=== PATIENT | female | born 1985 | race American Indian/Alaskan Native ===

== ENCOUNTER 2021-05-29 21:00 | Emergency (ER) | payer MEDICARE ==
[2021-05-29 23:47] LABS: Bacteria,Urine 1+ /HPF (Negative); Bilirubin,Urine NEG (Negative); Blood,Urine NEG (Negative); Color,Urine Yellow (Yellow); Mucus,Urine FEW /HPF
[2021-05-30 00:30] LABS: Basophils % (Auto) 0.3 % (0.0-1.8); Hematocrit 39.7 % (30.3-42.9); Hemoglobin 13.1 gm/dl (10.1-14.3); Lymphocytes # (Auto) 1.9 K/mm3 (1.2-5.4); Lymphocytes % (Auto) 11.1 % (13.4-35.0); Mean Corpuscular HGB Conc 33 % (30-34); Mean Corpuscular Volume 77 fl (79-97); Monocytes # (Auto) 0.8 K/mm3 (0.0-0.8); Monocytes % (Auto) 4.4 % (0.0-7.3); Platelet Count 432 K/mm3 (140-440); Red Blood Count 5.16 M/mm3 (3.65-5.03); Red Cell Distribution Width 16.3 % (13.2-15.2)
--- NOTE | 2021-05-30 00:39 | Emergency Department Report ---
ED General Adult HPI - General Chief complaint: Abdominal Pain Stated complaint: CHEST PAIN/CANALES Time Seen by Provider: 05/29/21 23:49 Source: patient Mode of arrival: Ambulatory Limitations: No Limitations - History of Present Illness Initial comments: Patient a 35-year-old obese female who presents for generalized abdominal pain with cough body aches x3 days. Patient is not Covid vaccinated. Patient denies suspicious contacts or travel. Symptoms are exacerbated by movement and p.o. intake. With nausea vomiting started 2 days ago. Symptoms are rated at 4/10 at this time. Patient denies renal stones or history of gallstones. Patient is status post tubal ligation. Other history is hypertension, - Related Data Previous Rx's Medication Instructions Recorded Last Taken Type Ciprofloxacin HCl 500 mg PO BID 7 Days #14 tablet 05/30/21 Unknown Rx Omeprazole 20 mg PO BID #30 tablet. 05/30/21 Unknown Rx metroNIDAZOLE [Flagyl] 500 mg PO Q8HR 7 Days #21 tablet 05/30/21 Unknown Rx traMADoL [Ultram] 50 mg PO Q6HR PRN #12 tablet 05/30/21 Unknown Rx Allergies Allergy/AdvReac Type Severity Reaction Status Date / Time naproxen Allergy Headache Verified 05/29/21 21:38 ED Review of Systems ROS: Stated complaint: CHEST PAIN/CANALES Other details as noted in HPI Constitutional: malaise Eyes: denies: eye pain, eye discharge, vision change ENT: denies: ear pain, throat pain Respiratory: cough. denies: shortness of breath, wheezing Cardiovascular: denies: chest pain, palpitations Endocrine: no symptoms reported Gastrointestinal: abdominal pain, nausea, vomiting. denies: diarrhea, constipation Genitourinary: denies: urgency, dysuria, frequency, discharge Musculoskeletal: back pain Skin: denies: rash, lesions Neurological: headache. denies: weakness, numbness, paresthesias, confusion, vertigo Psychiatric: denies: anxiety, depression Hematological/Lymphatic: denies: easy bleeding, easy bruising ED Past Medical Hx - Past Medical History Hx Hypertension: Yes Hx Psychiatric Treatment: Yes Hx Asthma: Yes - Surgical History Hx Cholecystectomy: Yes Additional Surgical History: c section x2 - Medications Home Medications: Home Medications Medication Instructions Recorded Confirmed Last Taken Type Ciprofloxacin HCl 500 mg PO BID 7 Days #14 tablet 05/30/21 Unknown Rx Omeprazole 20 mg PO BID #30 tablet. 05/30/21 Unknown Rx metroNIDAZOLE [Flagyl] 500 mg PO Q8HR 7 Days #21 tablet 05/30/21 Unknown Rx traMADoL [Ultram] 50 mg PO Q6HR PRN #12 tablet 05/30/21 Unknown Rx ED Physical Exam - General Limitations: No Limitations General appearance: alert, in no apparent distress - Head Head exam: Present: atraumatic, normocephalic - Eye Eye exam: Present: normal appearance, EOMI Pupils: Present: normal accommodation - ENT ENT exam: Present: mucous membranes moist - Neck Neck exam: Present: normal inspection, full ROM. Absent: tenderness - Respiratory Respiratory exam: Present: normal lung sounds bilaterally. Absent: respiratory distress, wheezes, stridor, chest wall tenderness - Cardiovascular Cardiovascular Exam: Present: regular rate, normal rhythm, normal heart sounds. Absent: systolic murmur, diastolic murmur, rubs, gallop - GI/Abdominal GI/Abdominal exam: Present: soft, tenderness (mild tenderness bilat Lower abd ), normal bowel sounds. Absent: distended, guarding, rebound, rigid, bruit, hernia - Rectal Rectal exam: Present: deferred - Extremities Exam Extremities exam: Present: normal inspection, full ROM, normal capillary refill - Back Exam Back exam: Present: full ROM. Absent: tenderness, CVA tenderness (R), CVA tenderness (L) - Neurological Exam Neurological exam: Present: alert, oriented X3, CN II-XII intact, normal gait, motor sensory deficit - Expanded Neurological Exam Expanded Patient oriented to: Present: person, place, time Speech: Present: fluid speech Motor strength exam: RUE: 5, LUE: 5, RLE: 5, LLE: 5 Best Eye Response ([place]): (4) open spontaneously Best Motor Response ([place]): (6) obeys commands Best Verbal Response ([place]): (5) oriented Cathleen Total: 15 - Psychiatric Psychiatric exam: Present: normal affect, normal mood - Skin Skin exam: Present: warm, dry, intact, normal color. Absent: rash ED Medical Decision Making - Lab Data Result diagrams: 05/29/21 23:57 05/29/21 23:57 Labs 05/29/21 05/29/21 05/29/21 23:20 23:57 23:57 WBC 17.4 H RBC 5.16 H Hgb 13.1 Hct 39.7 MCV 77 L MCH 25 L MCHC 33 RDW 16.3 H Plt Count 432 Lymph % (Auto) 11.1 L [place] % (Auto) 4.4 Eos % (Auto) 0.0 Baso % (Auto) 0.3 Lymph # (Auto) 1.9 [place] # (Auto) 0.8 Eos # (Auto) 0.0 Baso # (Auto) 0.0 Seg Neutrophils % 84.2 H Seg Neutrophils # 14.6 H Sodium 131 L Potassium 3.9 Chloride 97.4 L Carbon Dioxide 20 L Anion Gap 18 BUN 10 Creatinine 0.8 Estimated GFR > 60 BUN/Creatinine Ratio 13 Glucose 122 H Calcium 9.7 Total Bilirubin 1.40 H AST 14 ALT 15 Alkaline Phosphatase 93 Total Protein 8.2 Albumin 4.0 Albumin/Globulin Ratio 1.0 Urine Color Yellow Urine Turbidity Slightly-cloudy Urine pH 5.0 Ur Specific [place] 1.023 Urine Protein 30 mg/dl Urine Glucose (UA) Neg Urine Ketones Neg Urine Blood Neg Urine Nitrite Neg Urine Bilirubin Neg Urine Urobilinogen 4.0 Ur Leukocyte Esterase Neg Urine WBC (Auto) 6.0 Urine RBC (Auto) 2.0 U Epithel Cells (Auto) 11.0 Urine Bacteria (Auto) 1+ Urine Mucus Few - Radiology Data Radiology results: report reviewed, image reviewed Chest x-ray normal no infiltrates no opacities. CHEST 2 VIEWS INDICATION / CLINICAL INFORMATION: chest pain. COMPARISON: None available. FINDINGS: SUPPORT DEVICES: None. HEART / MEDIASTINUM: No significant abnormality. LUNGS / PLEURA: No significant pulmonary or pleural abnormality. No pneumothorax. ADDITIONAL FINDINGS: No significant additional findings. IMPRESSION: 1. No acute findings. Signer Name: Balaji Reed DO Signed: 05/30/2021 12:32 AM Workstation Name: [id number] cc: MILAGRO SALAZAR NP CT ABDOMEN AND PELVIS WITHOUT CONTRAST INDICATION / CLINICAL INFORMATION: "Generalized" abd pain with bodyaches x 3 days. TECHNIQUE: Axial CT images were obtained through the abdomen and pelvis without IV contrast. All CT scans at this location are performed using CT dose reduction for ALARA by means of automated exposure control. COMPARISON: None available. FINDINGS: LOWER CHEST: No significant abnormality. AORTA / ARTERIES: No significant abnormality. IVC / VEINS: No significant abnormality. LYMPH NODES: No significant adenopathy. COLON: There is diffusely diseased sigmoid colon with adjacent inflammation. No adjacent fluid collection or free intraperitoneal air. APPENDIX: No significant abnormality. STOMACH / SMALL BOWEL: No significant abnormality. PERITONEUM: No free fluid. No free air. No fluid collection. LIVER: No significant abnormality. GALLBLADDER: Cholecystectomy. BILE DUCTS: No significant abnormality. PANCREAS: No significant abnormality. SPLEEN: No significant abnormality. ADRENALS: No significant abnormality. RIGHT KIDNEY / URETER: No significant abnormality. LEFT KIDNEY / URETER: No significant abnormality. URINARY BLADDER: No significant abnormality. REPRODUCTIVE ORGANS: No significant abnormality. SKELETAL SYSTEM: No significant abnormality. ADDITIONAL FINDINGS: None. IMPRESSION: 1. Acute uncomplicated diverticulitis. Signer Name: Balaji ReedDO Signed: 05/30/2021 2:59 AM Workstation Name: [id number] - Medical Decision Making CT abdomen pelvis demonstrates diverticulitis. Without free fluid, uncomplicated. UA is normal, patient is tolerating p.o. intake. Plan will treat outpatient. DC to home Cipro and Flagyl po , ultram, follow up with GI, follow up with PCP , return to emergency if symptoms worsen or unable to tolerate po intake. , Critical care attestation.: If time is entered above; I have spent that time in minutes in the direct care of this critically ill patient, excluding procedure time. ED Disposition Clinical Impression: Diverticulitis Disposition: HOME / SELF CARE / HOMELESS Is pt being admited?: No Does the pt Need Aspirin: No Condition: Stable Instructions: Abdominal Pain (ED), Diverticulitis Additional Instructions: Take medications as prescribed, follow-up with your primary care doctor in 2 to 3 days. Return to emergency department should symptoms worsen. Do not drink alcohol with Flagyl. Prescriptions: Ciprofloxacin HCl 500 mg PO BID 7 Days #14 tablet metroNIDAZOLE [Flagyl] 500 mg PO Q8HR 7 Days #21 tablet Omeprazole 20 mg PO BID #30 tablet. traMADoL [Ultram] 50 mg PO Q6HR PRN #12 tablet PRN Reason: Pain Referrals: [facility] [Provider Group] - 3-5 Days BIANCA TRINH MD [Staff Physician] - 3-5 Days Forms: Work/School Release Form(ED) Time of Disposition: 04:39
[2021-05-30 00:40] LABS: Alanine Aminotransferase 15 units/L (7-56); BUN/Creatinine Ratio 13; Blood Urea Nitrogen 10 mg/dL (7-17); Calcium 9.7 mg/dL (8.4-10.2); Hemolysis Index 4
[2021-05-30] MEDS ORDERED: SODIUM CHLORIDE 0.9% 1000 ML 1,000 ML IV ONE (01:06)
[2021-05-30] MEDS ORDERED: ONDANSETRON 4 MG/2 ML INJ IV ONE (01:06)
--- NOTE | 2021-05-30 03:04 | Cat Scan Report ---
CT ABDOMEN AND PELVIS WITHOUT CONTRAST INDICATION / CLINICAL INFORMATION: "Generalized" abd pain with bodyaches x 3 days. TECHNIQUE: Axial CT images were obtained through the abdomen and pelvis without IV contrast. All CT scans at this location are performed using CT dose reduction for ALARA by means of automated exposure control. COMPARISON: None available. FINDINGS: LOWER CHEST: No significant abnormality. AORTA / ARTERIES: No significant abnormality. IVC / VEINS: No significant abnormality. LYMPH NODES: No significant adenopathy. COLON: There is diffusely diseased sigmoid colon with adjacent inflammation. No adjacent fluid collec tion or free intraperitoneal air. APPENDIX: No significant abnormality. STOMACH / SMALL BOWEL: No significant abnormality. PERITONEUM: No free fluid. No free air. No fluid collection. LIVER: No significant abnormality. GALLBLADDER: Cholecystectomy. BILE DUCTS: No significant abnormality. PANCREAS: No significant abnormality. SPLEEN: No significant abnormality. ADRENALS: No significant abnormality. RIGHT KIDNEY / URETER: No significant abnormality. LEFT KIDNEY / URETER: No significant abnormality. URINARY BLADDER: No significant abnormality. REPRODUCTIVE ORGANS: No significant abnormality. SKELETAL SYSTEM: No significant abnormality. ADDITIONAL FINDINGS: None. IMPRESSION: 1. Acute uncomplicated diverticulitis. Signer Name: Balaji Reed DO Signed: 05/30/2021 2:59 AM Workstation Name: [id number]
[2021-05-30] MEDS ORDERED: cefTRIAXone/NS 1 GM/50 ML 1 GM/50 ML BAG IV ONE (04:29)
[2021-05-30] MEDS ORDERED: KETOROLAC 30 MG/1 ML INJ IV ONE (05:12)
--- NOTE | 2021-05-30 11:06 | Electrocardiograph Report ---
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
== END 2021-05-30 06:39 | disposition home or self-care (01) ==
LOC: ED 21:00
DX: K57.92 Diverticulitis of intestine, part unspecified, without perforation or abscess without bleeding (principal); I10 Essential (primary) hypertension; J45.909 Unspecified asthma, uncomplicated; Z90.49 Acquired absence of other specified parts of digestive tract; Z98.890 Other specified postprocedural states; Z79.899 Other long term (current) drug therapy; Z88.8 Allergy status to other drugs, medicaments and biological substances
CPT/HCPCS: 36415; 71046; 74176; 80053; 81001; 85025; 93005; 99284; J0696; J1885; J2405; J7030; Q0162